=== PATIENT | female | born 2000 | race American Indian/Alaskan Native ===

== ENCOUNTER 2019-05-27 12:01 | Emergency (ER) | payer SELFPAY ==
[2019-05-27 12:05] VITALS: BP 116/59
--- NOTE | 2019-05-27 12:30 | Emergency Department Report ---
Blank Doc - Documentation Documentation: 19-year-old female that presents with left sided chest pain, SOB, and cough. This initial assessment/diagnostic orders/clinical plan/treatment(s) is/are subject to change based on patient's health status, clinical progression and re- assessment by fellow clinical providers in the ED. Further treatment and workup at subsequent clinical providers discretion. Patient/guardians urged not to elope from the ED as their condition may be serious if not clinically assessed and managed. Initial orders include: 1- Patient sent to [facility] for further evaluation and treatment 2- EKG 3- CXR
--- NOTE | 2019-05-27 13:02 | XRay Report ---
CHEST 2 VIEWS INDICATION / CLINICAL INFORMATION: Chest pain and shortness of breath. COMPARISON: None available. FINDINGS: SUPPORT DEVICES: None. HEART / MEDIASTINUM: No significant abnormality. LUNGS / PLEURA: No significant pulmonary or pleural abnormality. No pneumothorax. ADDITIONAL FINDINGS: No significant additional findings. IMPRESSION: 1. No acute findings. Signer Name: Sundar Gonzales MD Signed: 05/27/2019 12:58 PM Workstation Name: [id number]
--- NOTE | 2019-05-27 14:37 | Emergency Department Report ---
ED Chest Pain HPI - General Chief Complaint: Upper Respiratory Infection Stated Complaint: SOB/CP/ Time Seen by Provider: 05/27/19 12:26 Source: patient Mode of arrival: Ambulatory Limitations: No Limitations - History of Present Illness Initial Comments: 19-year-old female presenting with chief complaint of left-sided lower chest pain, shortness of breath, pain with breathing onset 4 days ago. She states certain movements seem to make it worse. She denies any cough, fevers, recent travel, OCP use, leg swelling, history of DVT or PE, or any other complaints. MD Complaint: chest pain -: Gradual, days(s) (4) Onset: other Pain Location: left chest Pain Radiation: none Severity: moderate Severity scale (0 -10): 6 Quality: aching Consistency: constant Improves With: rest Worsens With: inspiration, palpation, movement re: denies: nausea, vomting Other Symptoms: denies: cough, fever Treatments Prior to Arrival: none - Related Data Previous Rx's Medication Instructions Recorded Last Taken Type Naproxen [Naprosyn] 500 mg PO BID #20 tablet 05/27/19 Unknown Rx predniSONE [Deltasone] 40 mg PO QDAY #10 tab 05/27/19 Unknown Rx Heart Score - HEART Score History: Slightly suspicious EKG: Normal Age: < 45 Risk factors: No known risk factors Troponin: < normal limit HEART Score: 0 ED Review of Systems ROS: Stated complaint: SOB/CP/ Other details as noted in HPI Comment: All other systems reviewed and negative Respiratory: see HPI Cardiovascular: as per HPI ED Past Medical Hx - Past Medical History Previous Medical History?: No - Surgical History Past Surgical History?: No - Social History Smoking Status: Never Smoker Substance Use Type: Alcohol - Medications Home Medications: Home Medications Medication Instructions Recorded Confirmed Last Taken Type Naproxen [Naprosyn] 500 mg PO BID #20 tablet 05/27/19 Unknown Rx predniSONE [Deltasone] 40 mg PO QDAY #10 tab 05/27/19 Unknown Rx ED Physical Exam - General Limitations: No Limitations General appearance: alert, in no apparent distress - Head Head exam: Present: atraumatic, normocephalic - Eye Eye exam: Present: normal appearance - ENT ENT exam: Present: mucous membranes moist - Neck Neck exam: Present: normal inspection - Respiratory Respiratory exam: Present: normal lung sounds bilaterally, chest wall tenderness (To the left lower ribs with palpation and movement). Absent: respiratory distress, wheezes - Cardiovascular Cardiovascular Exam: Present: regular rate, normal rhythm. Absent: systolic murmur, diastolic murmur, rubs, gallop - GI/Abdominal GI/Abdominal exam: Present: soft, normal bowel sounds. Absent: tenderness, guarding - Extremities Exam Extremities exam: Present: normal inspection - Back Exam Back exam: Present: normal inspection - Neurological Exam Neurological exam: Present: alert, oriented X3 - Psychiatric Psychiatric exam: Present: normal affect, normal mood - Skin Skin exam: Present: warm, dry, intact, normal color. Absent: rash ED Course Vital Signs 05/27/19 12:03 Temperature 98.1 F Pulse Rate 72 Respiratory 18 Rate Blood Pressure 116/59 O2 Sat by Pulse 97 Oximetry ED Medical Decision Making - EKG Data -: EKG Interpreted by Me EKG shows normal: sinus rhythm Rate: normal - EKG Data When compared to previous EKG there are: previous EKG unavailable Interpretation: no acute changes, normal EKG - Radiology Data Radiology results: report reviewed Negative two-view chest - Medical Decision Making 19-year-old healthy female presenting with left chest wall pain onset 4 days ago. On exam she is tender to palpation over the left lower anterior ribs and pain reproduces with movement. She has no risk factors for DVT or PE. Vital signs are normal including heart rate and O2 saturation. She is PERC negative. This is consistent with chest wall pain. EKG and chest x-ray are negative. Advised supportive care and PCP follow-up. - Differential Diagnosis chest wall pain/pleurisy, pna Critical care attestation.: If time is entered above; I have spent that time in minutes in the direct care of this critically ill patient, excluding procedure time. ED Disposition Clinical Impression: Chest wall pain Disposition: DC-01 TO HOME OR SELFCARE Is pt being admited?: No Condition: Good Instructions: Chest Pain (ED) Prescriptions: predniSONE [Deltasone] 40 mg PO QDAY #10 tab Naproxen [Naprosyn] 500 mg PO BID #20 tablet Referrals: ABHIJIT GONGORA MD [Primary Care Provider] - 3-5 Days Time of Disposition: 14:39
== END 2019-05-27 14:46 | disposition home or self-care (01) ==
LOC: ED 12:01
DX: R07.89 Other chest pain (principal); Z79.899 Other long term (current) drug therapy
CPT/HCPCS: 71046; 93005; 93010

== ENCOUNTER 2019-09-29 11:15 | Emergency (ER) | payer SELFPAY ==
--- NOTE | 2019-09-29 13:07 | Emergency Department Report ---
Blank Doc - Documentation Documentation: 19-year-old female that presents with pelvic pain that radiates to back area. Pt is sexually active. Denies any vaginal discharge. This initial assessment/diagnostic orders/clinical plan/treatment(s) is/are subject to change based on patient's health status, clinical progression and re- assessment by fellow clinical providers in the ED. Further treatment and workup at subsequent clinical providers discretion. Patient/guardians urged not to elope from the ED as their condition may be serious if not clinically assessed and managed. Initial orders include: 1- Patient sent to [facility] for further evaluation and treatment 2- UA 3- pelvic exam r/o PID
[2019-09-29 13:21] LABS: HCG Qualitative,Urine Negative (Negative)
[2019-09-29 13:25] LABS: Bilirubin,Urine NEG (Negative); Blood,Urine NEG (Negative); Color,Urine Amber (Yellow); Mucus,Urine 3+ /HPF
[2019-09-29 16:54] LABS: Basophils % (Auto) 0.5 % (0.0-1.8); Eosinophils % (Auto) 0.3 % (0.0-4.3); Hematocrit 38.8 % (30.3-42.9); Hemoglobin 12.4 gm/dl (10.1-14.3); Lymphocytes % (Auto) 20.9 % (13.4-35.0); Mean Corpuscular HGB Conc 32 % (30-34); Mean Corpuscular Volume 72 fl (79-97); Monocytes # (Auto) 0.9 K/mm3 (0.0-0.8); Platelet Count 428 K/mm3 (140-440); Red Blood Count 5.39 M/mm3 (3.65-5.03); Red Cell Distribution Width 14.3 % (13.2-15.2)
[2019-09-29] MEDS ORDERED: MORPHINE 4 MG/1 ML INJ IV ONE (16:55)
[2019-09-29] MEDS ORDERED: SODIUM CHLORIDE 0.9% 1000 ML 1,000 ML IV ONE (16:55)
[2019-09-29] MEDS ORDERED: ONDANSETRON 4 MG/2 ML INJ IV ONE (16:55)
[2019-09-29] MEDS: cefTRIAXone/NS 1 GM/50 ML 1 GM/50 ML BAG IV ONE ×2 (17:17→17:23)
[2019-09-29 17:21] LABS: Alanine Aminotransferase 11 units/L (7-56); Albumin 4.2 g/dL (3.9-5); BUN/Creatinine Ratio 14; Blood Urea Nitrogen 7 mg/dL (7-17); Calcium 9.6 mg/dL (8.4-10.2); Hemolysis Index 3
[2019-09-29] MEDS ORDERED: diphenhydrAMINE 25 MG CAP PO ONE (17:24)
[2019-09-29] MEDS ORDERED: KETOROLAC 30 MG/1 ML INJ IV ONE (18:05)
--- NOTE | 2019-09-29 18:11 | Emergency Department Report ---
ED General Adult HPI - General Chief complaint: Abdominal Pain Stated complaint: ABD PAIN/ Time Seen by Provider: 09/29/19 13:05 Source: patient Mode of arrival: Ambulatory Limitations: No Limitations - History of Present Illness Initial comments: 19-year-old -[place] female patient presents with complaints of suprapubic pain and right flank pain x1 week. She denies any dysuria/hematuria/urinary frequency, vaginal discharge, history of kidney stones, nausea/vomiting/diarrhea, constipation, fever/chills/sweats, or history of abdominal surgeries. She rates her pain as a 10/10 in severity and states the pain is worse in her right flank. -: Sudden Severity scale (0 -10): 10 Quality: aching, constant Consistency: constant - Related Data Previous Rx's Medication Instructions Recorded Last Taken Type Naproxen [Naprosyn] 500 mg PO BID #20 tablet 05/27/19 Unknown Rx predniSONE [Deltasone] 40 mg PO QDAY #10 tab 05/27/19 Unknown Rx Acetaminophen/Codeine [Tylenol 1 tab PO Q6H PRN #10 tab 09/29/19 Unknown Rx /Codeine # 3 tab] Doxycycline Monohydrate 100 mg PO BID 14 Days #28 capsule 09/29/19 Unknown Rx Hyoscyamine Subl [Levsin Sl 0.125 0.125 - 0.25 mg PO Q4H PRN #20 09/29/19 U nknown Rx TAB] tablet Allergies Allergy/AdvReac Type Severity Reaction Status Date / Time No Known Allergies Allergy Unverified 09/29/19 21:05 ED Review of Systems ROS: Stated complaint: ABD PAIN/ Other details as noted in HPI Constitutional: denies: chills, diaphoresis, fever, malaise, weakness Respiratory: denies: cough, shortness of breath Gastrointestinal: abdominal pain. denies: nausea, vomiting, diarrhea, constipation, hematemesis, melena, hematochezia Genitourinary: denies: urgency, dysuria, frequency, hematuria, discharge, abnormal menses Musculoskeletal: back pain Skin: denies: rash, lesions, change in color Neurological: denies: headache ED Past Medical Hx - Past Medical History Previous Medical History?: No - Surgical History Past Surgical History?: No - Social History Smoking Status: Unknown if ever smoked Substance Use Type: None - Medications Home Medications: Home Medications Medication Instructions Recorded Confirmed Last Taken Type Naproxen [Naprosyn] 500 mg PO BID #20 tablet 05/27/19 Unknown Rx predniSONE [Deltasone] 40 mg PO QDAY #10 tab 05/27/19 Unknown Rx Acetaminophen/Codeine [Tylenol 1 tab PO Q6H PRN #10 tab 09/29/19 Unknown Rx /Codeine # 3 tab] Doxycycline Monohydrate 100 mg PO BID 14 Days #28 capsule 09/29/19 Unknown Rx Hyoscyamine Subl [Levsin Sl 0.125 0.125 - 0.25 mg PO Q4H PRN #20 09/29/19 Unknown Rx TAB] tablet ED Physical Exam - General Limitations: No Limitations General appearance: alert, in no apparent distress, other (Patient appears uncomfortable) - Head Head exam: Present: atraumatic, normocephalic - Eye Eye exam: Present: normal appearance. Absent: scleral icterus - ENT ENT exam: Present: mucous membranes moist - Respiratory Respiratory exam: Present: normal lung sounds bilaterally. Absent: respiratory distress - Cardiovascular Cardiovascular Exam: Present: regular rate, normal rhythm. Absent: systolic murmur, diastolic murmur, rubs, gallop - GI/Abdominal GI/Abdominal exam: Present: soft, tenderness (Generalized suprapubic ), rebound, normal bowel sounds. Absent: distended, rigid - Extremities Exam Extremities exam: Present: normal inspection - Back Exam Back exam: Present: full ROM, CVA tenderness (R) (Significant) - Neurological Exam Neurological exam: Present: alert, oriented X3, normal gait - Psychiatric Psychiatric exam: Present: normal affect, normal mood - Skin Skin exam: Present: warm, dry, intact, normal color. Absent: rash, cyanosis, diaphoretic, erythema, petechiae, ecchymosis ED Course Vital Signs 09/29/19 09/29/19 09/29/19 12:33 18:21 18:44 Temperature 98.3 F Pulse Rate 71 68 Respiratory 18 16 16 Rate Blood Pressure 122/69 Blood Pressure 118/71 [Left] O2 Sat by Pulse 100 100 Oximetry 09/29/19 21:08 Temperature 98.2 F Pulse Rate 75 Respiratory 16 Rate Blood Pressure Blood Pressure 112/65 [Left] O2 Sat by Pulse 100 Oximetry ED Medical Decision Making - Lab Data Result diagrams: 09/29/19 16:32 09/29/19 16:32 Lab Results 09/29/19 09/29/19 09/29/19 Range/Units 16:32 16:32 Unknown WBC 9.3 (4.5-11.0) K/mm3 RBC 5.39 H (3.65-5.03) M/mm3 Hgb 12.4 (10.1-14.3) gm/dl Hct 38.8 (30.3-42.9) % MCV 72 L (79-97) fl MCH 23 L (28-32) pg MCHC 32 (30-34) % RDW 14.3 (13.2-15.2) % Plt Count 428 (140-440) K/mm3 Lymph % (Auto) 20.9 (13.4-35.0) % Moody % (Auto) 10.0 H (0.0-7.3) % Eos % (Auto) 0.3 (0.0-4.3) % Baso % (Auto) 0.5 (0.0-1.8) % Lymph # 2.0 (1.2-5.4) K/mm3 Moody # 0.9 H (0.0-0.8) K/mm3 Eos # 0.0 (0.0-0.4) K/mm3 Baso # 0.0 (0.0-0.1) K/mm3 Seg Neutrophils % 68.3 (40.0-70.0) % Seg Neutrophils # 6.4 (1.8-7.7) K/mm3 Sodium 139 (137-145) mmol/L Potassium 3.4 L (3.6-5.0) mmol/L Chloride 98.8 (98-107) mmol/L Carbon Dioxide 24 (22-30) mmol/L Anion Gap 20 mmol/L BUN 7 (7-17) mg/dL Creatinine 0.5 L (0.7-1.2) mg/dL Estimated GFR > 60 ml/min BUN/Creatinine Ratio 14 % Glucose 88 (65-100) mg/dL Calcium 9.6 (8.4-10.2) mg/dL Total Bilirubin 0.60 (0.1-1.2) mg/dL AST 10 (5-40) units/L ALT 11 (7-56) units/L Alkaline Phosphatase 80 (35-129) units/L Total Protein 8.8 H (6.3-8.2) g/dL Albumin 4.2 (3.9-5) g/dL Albumin/Globulin Ratio 0.9 % Urine Color Christine (Yellow) Urine Turbidity Cloudy (Clear) Urine pH 6.0 (5.0-7.0) Ur Specific Brillion 1.034 H (1.003-1.030) Urine Protein 30 mg/dl (Negative) mg/dL Urine Glucose (UA) Neg (Negative) mg/dL Urine Ketones 20 (Negative) mg/dL Urine Blood Neg (Negative) Urine Nitrite Neg (Negative) Ur Reducing Substances Not Reportable Urine Bilirubin Neg (Negative) Urine Ictotest Not Reportable Urine Urobilinogen 4.0 (<2.0) mg/dL Ur Leukocyte Esterase Lg (Negative) Urine WBC (Auto) 155.0 H (0.0-6.0) /HPF Urine RBC (Auto) 9.0 (0.0-6.0) /HPF U Epithel Cells (Auto) 18.0 H (0-13.0) /HPF Urine Mucus 3+ /HPF Urine HCG, Qual Negative (Negative) - Radiology Data Radiology results: report reviewed CT ABDOMEN AND PELVIS WITH CONTRAST INDICATION: R flank and RLQ pain. TECHNIQUE: Axial CT images were obtained through the abdomen and pelvis after 100 cc Omnipaque [address] scans at this location are performed using CT dose reduction for ALARA by means of automated exposure control. COMPARISON: None available. FINDINGS: LOWER CHEST: No significant abnormality. LIVER: No significant abnormality. GALLBLADDER: No significant abnormality. BILE DUCTS: No significant abnormality. PANCREAS: No significant abnormality. SPLEEN: No significant abnormality. ADRENALS: No significant abnormality. RIGHT KIDNEY and URETER: No significant abnormality. LEFT KIDNEY and URETER: No significant abnormality. STOMACH and SMALL BOWEL: No significant abnormality. COLON: No significant abnormality. APPENDIX: No significant abnormality. PERITONEUM: Trace amount of free pelvic fluid. No free air. No fluid collection. LYMPH NODES: No significant adenopathy. AORTA and ARTERIES: No significant abnormality. IVC and VEINS: No significant abnormality. URINARY BLADDER: No significant abnormality. REPRODUCTIVE ORGANS: Focal inflammation within the right lower quadrant of the pelvis with probable right hydrosalpinx suggestive for pelvic inflammatory disease with fatty stranding changes on axial series 3 images [id number]. 3.5 cm left ovarian cyst. 1.87 m right ovarian cyst. ADDITIONAL FINDINGS: None. SKELETAL SYSTEM: No significant abnormality. IMPRESSION: 1. Probable right-sided pelvic inflammatory disease/hydrosalpinx. 2. No CT evidence for appendicitis. - Medical Decision Making Patient here with lower abdominal and right flank pain for the past week. UA is positive for UTI. No significant abnormalities noted on CBC or CMP. Patient is afebrile and non-tachycardic. Patient states no improvement in pain with morphine or Toradol. Significant right CVA tenderness and right lower quadrant still noted on exam. CT abdomen ordered. CT shows possible right-sided pelvic inflammatory disease/hydrosalpinx. Discussed need for pelvic exam to further assess for PID, patient declined stating she would like to go home. Discussed in detail importance of STI testing and pelvic exam for proper diagnosis, patient continues to decline. Will treat empirically for PID with azithromycin, Rocephin, and doxycycline for home. Patient also prescribed Flagyl 2 g for home. Her vitals are normal and her pain is currently controlled. Patient is nontoxic-appearing and stable for discharge home. Recommend follow-up with PCP and DRIVER. Strict return precautions were discussed in detail with patient who verbalizes understanding. Critical care attestation.: If time is entered above; I have spent that time in minutes in the direct care of this critically ill patient, excluding procedure time. ED Disposition Clinical Impression: PID (acute pelvic inflammatory disease), Pyelonephritis Disposition: TO HOME OR SELFCARE Is pt being admited?: No Condition: Stable Instructions: Pelvic Inflammatory Disease (ED), Acute Pyelonephritis (ED) Prescriptions: Doxycycline Monohydrate 100 mg PO BID 14 Days #28 capsule Hyoscyamine Subl [Levsin Sl 0.125 TAB] 0.125 - 0.25 mg PO Q4H PRN #20 tablet PRN Reason: pain Acetaminophen/Codeine [Tylenol /Codeine # 3 tab] 1 tab PO Q6H PRN #10 tab PRN Reason: Pain , Severe (7-10) Referrals: ABHIJIT GONGORA MD [Primary Care Provider] - 3-5 Days
--- NOTE | 2019-09-29 19:59 | Cat Scan Report ---
CT ABDOMEN AND PELVIS WITH CONTRAST INDICATION: R flank and RLQ pain. TECHNIQUE: Axial CT images were obtained through the abdomen and pelvis after 100 cc Omnipaque [address] scans at this location are performed using CT dose reduction for ALARA by means of automated exposure control. COMPARISON: None available. FINDINGS: LOWER CHEST: No significant abnormality. LIVER: No significant abnormality. GALLBLADDER: No significant abnormality. BILE DUCTS: No significant abnormality. PANCREAS: No significant abnormality. SPLEEN: No significant abnormality. ADRENALS: No significant abnormality. RIGHT KIDNEY and URETER: No significant abnormality. LEFT KIDNEY and URETER: No significant abnormality. STOMACH and SMALL BOWEL: No significant abnormality. COLON: No significant abnormality. APPENDIX: No significant abnormality. PERITONEUM: Trace amount of free pelvic fluid. No free air. No fluid collection. LYMPH NODES: No significant adenopathy. AORTA and ARTERIES: No significant abnormality. IVC and VEINS: No significant abnormality. URINARY BLADDER: No significant abnormality. REPRODUCTIVE ORGANS: Focal inflammation within the right lower quadrant of the pelvis with probable r ight hydrosalpinx suggestive for pelvic inflammatory disease with fatty stranding changes on axial se isabel 3 images [id number]. 3.5 cm left ovarian cyst. 1.87 m right ovarian cyst. ADDITIONAL FINDINGS: None. SKELETAL SYSTEM: No significant abnormality. IMPRESSION: 1. Probable right-sided pelvic inflammatory disease/hydrosalpinx. 2. No CT evidence for appendicitis. 3 bilateral ovarian cysts with trace amount of free pelvic fluid Signer Name: Jose Enrique Adams MD Signed: 09/29/2019 7:55 PM Workstation Name: [id number]
[2019-09-29] MEDS ORDERED: HYOSCYAMINE SUBL 0.125 MG TAB SL ONE (20:23)
[2019-09-29] MEDS ORDERED: AZITHROMYCIN 250 MG TAB PO ONE (20:36)
[2019-09-30 07:36] VITALS: BP 112/65
== END 2019-09-29 21:08 | disposition home or self-care (01) ==
LOC: ED 11:15
DX: R10.2 Pelvic and perineal pain (principal); Z79.899 Other long term (current) drug therapy
CPT/HCPCS: 36415; 74177; 80053; 81001; 81025; 85025; 87086; 96365; 96375; 99284; J0696; J1885; J2270; J2405; J7030; Q9967